=== PATIENT | female | born 1955 | race Caucasian/White ===

== ENCOUNTER 2017-03-21 11:21 | Inpatient (IN) | payer MEDICARE ==
[2017-03-21] VITALS (9 sets, daily range): BP systolic 130–206; BP diastolic 59–84; PULSE 77–99; RESP 16–24; TEMP 98.3–98.8; O2SAT 95–100
[~2017-03-21] VITALS: Ht 170.2 cm; Wt 62.0 kg
[~2017-03-21 11:21] MED LIST: 1-ME1LIQ PO; CRES10TA PO; FLUD.1 PO; HYDR-2951 PO; MAGN400 PO; METO100 PO; NEXI40CA PO; NICO14T TD; PROZ20CA11 PO; XANA2TAB2 PO
[2017-03-21] MEDS ORDERED: SODIUM CHLOR 0.9% 1000 ML INJ 1,000 ML IV ONE (11:33)
[2017-03-21 11:42] LABS: I-STAT POTASSIUM 4.8 MMOL/L (3.5-4.9)
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
--- NOTE | 2017-03-21 11:52 | RADRPT ---
EXAM DATE/TIME: 03/21/2017 11:37 [facility] COMPARISON: No previous studies available for comparison. INDICATIONS : Left sided weakness 3 days post op right hip surgery RADIATION DOSE: 56.35 CTDIvol (mGy) This report was called by Dr. Patel to Dr. Plascencia at 1150 hrs. MEDICAL HISTORY : Hypertension. SURGICAL HISTORY : None. ENCOUNTER: Initial ACUITY: 1 day PAIN SCALE: 0/10 LOCATION: cranial TECHNIQUE: Multiple contiguous axial images were obtained of the head. Using automated exposure control and adj ustment of the mA and/or kV according to patient size, radiation dose was kept as low as reasonably a chievable to obtain optimal diagnostic quality images. FINDINGS: CEREBRUM: The ventricles are normal for age. Periventricular areas of diminished attenuation in characteristic with some degree of small vessel ischemic examination. No evidence of midline shift, mass lesion, he morrhage or acute infarction. No extra-axial fluid collections are seen. POSTERIOR FOSSA: The cerebellum and brainstem are intact. The 4th ventricle is midline. The cerebellopontine angle i s unremarkable. EXTRACRANIAL: The visualized portion of the orbits is intact. SKULL: The calvaria is intact. No evidence of skull fracture. CONCLUSION: 1. Periventricular areas of diminished attenuation in characteristic of some degree of small vessel i schemic demyelination. 2. Nothing acute. Anthony Patel MD on March 21, 2017 at 11:47 Board Certified Radiologist. This report was verified electronically.
[2017-03-21] MEDS ORDERED: FLUD.1 PO (11:54)
[2017-03-21] MEDS ORDERED: CITRSOL4 PO (11:54)
[2017-03-21] MEDS ORDERED: ENOX40P SQ (11:54)
[2017-03-21] MEDS ORDERED: NICO14DI T-DERMAL (11:54)
[2017-03-21] MEDS ORDERED: METO50TA PO (11:54)
[2017-03-21] MEDS ORDERED: TYLE325T PO (11:54)
[2017-03-21] MEDS ORDERED: ENEMENE5 RECTAL (11:54)
[2017-03-21] MEDS ORDERED: SOMA350T PO (11:54)
[2017-03-21] MEDS ORDERED: FLUO60TA PO (11:54)
[2017-03-21] MEDS ORDERED: MILKSUS PO (11:54)
[2017-03-21] MEDS ORDERED: ALPR2TAB3 PO (11:54)
[2017-03-21] MEDS ORDERED: DULC10SU3 RECTAL (11:54)
[2017-03-21] MEDS ORDERED: LISI10TA3 PO (11:54)
[2017-03-21] MEDS ORDERED: NORC5TAB PO (11:54)
[2017-03-21] MEDS ORDERED: BUPR100CR PO (11:54)
[2017-03-21 11:57] LABS: AUTOMATED NEUTROPHIL # 8.8 TH/MM3 (1.8-7.7); BASOPHIL # 0.1 TH/MM3 (0-0.2); BASOPHIL % 0.5 % (0.0-2.0); EOSINOPHIL # 0.1 TH/MM3 (0-0.4); EOSINOPHIL % 0.6 % (0.0-4.0); HEMATOCRIT 32.7 % (35.0-46.0); HEMO FLAGS DIFF FINAL; LYMPH % 15.7 % (9.0-44.0); LYMPHOCYTE # 1.8 TH/MM3 (1.0-4.8); MEAN CELL VOLUME 86.3 FL (80.0-100.0); MEAN CORPUSCULAR HEMOGLOBIN 28.8 PG (27.0-34.0); MEAN CORPUSCULAR HGB CONC 33.4 % (32.0-36.0); MONO % 7.3 % (0.0-8.0); NEUT % 75.9 % (16.0-70.0); PLATELET COUNT 609 TH/MM3 (150-450); RED BLOOD COUNT 3.78 MIL/MM3 (4.00-5.30); RED CELL DISTRIBUTION WIDTH 15.4 % (11.6-17.2); WHITE BLOOD COUNT 11.5 TH/MM3 (4.0-11.0)
[2017-03-21 12:19] LABS: BACTERIA, URINE OCC /hpf; BLOOD, URINE SMALL (NEG); GLUCOSE,URINE NEG (NEG); KETONE, URINE TRACE mg/dL (NEG); MUCUS URINE FEW /lpf (OCC); NITRITE,URINE NEG (NEG); PH, URINE 8.5 (5.0-8.5); URINE COLOR YELLOW (YELLW/STRAW)
[2017-03-21 12:28] LABS: AMPHETAMINE, URINE NEG (NEG); BARBITURATES, URINE NEG (NEG); COCAINE, URINE NEG (NEG)
[2017-03-21 12:35] LABS: APTT (PATIENT) 35.2 SEC (24.3-30.1); INTERNATIONAL NORMALIZED RATIO 1.1 RATIO; PROTHROMBIN TIME - PATIENT 12.3 SEC (9.8-11.6)
[2017-03-21] MEDS ORDERED: IOHEXOL 350 MG/ML 10 ML VIAL (for RAD DIAG) IV ONE (12:41)
--- NOTE | 2017-03-21 12:42 | RADRPT ---
EXAM DATE/TIME: 03/21/2017 12:11 [facility] COMPARISON: No previous studies available for comparison. INDICATIONS : Left side weakness,headache. IV CONTRAST: 50 cc Omnipaque 350 (iohexol) IV ; Cumulative dose for multiple exams. RADIATION DOSE: 14.09 CTDIvol (mGy) ; Combined studies MEDICAL HISTORY : Cardiovascular disease. Hypertension. SURGICAL HISTORY : Appendectomy. Hysterectomy. ENCOUNTER: Initial ACUITY: 1 day PAIN SCALE: 7/10 LOCATION: CTA HEAD TECHNIQUE: Volumetric scanning was performed using a multi-row detector CT scanner. The data was post processed with a variety of visualization algorithms including full volume maximum intensity projection, multi -planar sliding thin slab reformation, curved planar reformation, and surface rendering techniques. Using automated exposure control and adjustment of the mA and/or kV according to patient size, radiat ion dose was kept as low as reasonably achievable to obtain optimal diagnostic quality images. FINDINGS: There is atherosclerotic change of the cavernous ICA segments bilaterally causing mild luminal irregu larity but no significant stenosis is seen. A1 segments are patent bilaterally. More distal intracere bral arteries are symmetric. Middle cerebral arteries are symmetric. No occlusion or aneurysm is iden tified. Posterior fossa structures demonstrate no acute finding. Vertebral arteries are co-dominant. Basilar artery is normal in size without aneurysm. Posterior sural arteries demonstrate very mild vessel irre gularity but no stenosis. CONCLUSION: Mild atherosclerotic disease within the internal carotid arteries intracranially. However, no high-gr arya stenosis, vessel occlusion, or aneurysm is identified. Zoltan Santana MD on March 21, 2017 at 12:36 Board Certified Radiologist. This report was verified electronically.
[2017-03-21 13:06] LABS: CKMB 2.2 NG/ML (0.5-3.6)
--- NOTE | 2017-03-21 13:07 | RADRPT ---
EXAM DATE/TIME: 03/21/2017 12:08 [facility] COMPARISON: CTA BRAIN W 3D RECON, March 21, 2017, 12:11. INDICATIONS : Left side weaknessheadache IV CONTRAST: 50 cc Omnipaque 350 (iohexol) IV ; Cumulative dose for multiple exams. RADIATION DOSE: 14.09 CTDIvol (mGy) ; Combined studies MEDICAL HISTORY : Cardiovascular disease. Hypertension. SURGICAL HISTORY : Appendectomy. Hysterectomy. ENCOUNTER: Initial ACUITY: 1 day PAIN SCALE: 7/10 LOCATION: neck CTA Elevated flow velocities and ICA/CCA ratios have been found to correlate with increased degrees of vessel stenosis, calculated as percentage of diameter relative to a normal segment of distal ICA/CCA. TECHNIQUE: Volumetric scanning was performed using a multirow detector CT scanner. The data was post processed with a variety of visualization algorithms including full-volume maximum intensity projection, multip lanar sliding thin-slab reformation, curved-planar reformation, and surface-rendering techniques. Us ing automated exposure control and adjustment of the mA and/or kV according to patient size, radiatio n dose was kept as low as reasonably achievable to obtain optimal diagnostic quality images. FINDINGS: AORTIC ARCH: There is a three-vessel origin of the great vessels from the aorta with moderate atherosclerotic dise ase of the arch and moderate atherosclerotic disease of the origin of the great vessels. There is sev ere focal calcification and likely at least moderate stenosis at the origin of the right subclavian a rtery. RIGHT CAROTID: There is mild to moderate calcified and noncalcified plaque throughout the common carotid artery with out significant stenosis. There is moderate calcified plaque at the carotid bulb but less than 50% st enosis is present. LEFT CAROTID: There is mild calcified and noncalcified plaque in the distal common carotid artery. There is mild ca lcified plaque in the carotid bulb and proximal aspects of the internal and external carotid arteries . However, there is less than 50% stenosis. VERTEBRALS: There is a small calcified plaque at the origin of the left vertebral artery. Vertebral arteries are codominant without stenosis. Visualized surrounding structures demonstrate no acute finding. There is patchy groundglass opacity a t the lung apices. CONCLUSION: 1. No acute vascular abnormality is identified within the neck. There is moderate right and mild left carotid bulb and proximal internal carotid artery atherosclerotic change but less than 50% stenosis present. 2. Severe calcified plaque a focally at the origin of the right subclavian artery likely resulting in moderate to severe stenosis. Zoltan Santana MD on March 21, 2017 at 12:51 Board Certified Radiologist. This report was verified electronically.
[2017-03-21] MEDS ORDERED: ASPIRIN EC 325 MG TABEC PO SCH (13:30)
[2017-03-21] MEDS: SODIUM CHLOR 0.9% 1000 ML INJ 1,000 ML IV SCH (13:42)
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
--- NOTE | 2017-03-21 16:15 | RADRPT ---
EXAM DATE/TIME: 03/21/2017 15:20 [facility] COMPARISON: No previous studies available for comparison. INDICATIONS : Clear for MRI. MEDICAL HISTORY : Hypertension. Cardiovascular disease. SURGICAL HISTORY : Appendectomy. Hysterectomy. right hip surgery ENCOUNTER: Initial ACUITY: 1 day PAIN SCORE: Non-responsive. LOCATION: Bilateral abdomen FINDINGS: 2 supine AP views of the abdomen. Right hip screw. No other radiopaque foreign bodies identified. [place] el gas pattern within normal limits. CONCLUSION: Right-sided hip screw. No other radiopaque foreign bodies identified. Matthias Dumont MD on March 21, 2017 at 16:12 Board Certified Radiologist. This report was verified electronically.
[2017-03-21] MEDS: ALPRAZolam 1 MG TAB PO SCH ×2 (17:13→21:57)
[2017-03-21] MEDS ORDERED: VALPROATE INJ 750 MG in SODIUM CHLORIDE 0.9% INJ 100 ML IV ONE (17:15)
[2017-03-21] MEDS ORDERED: GADODIAMIDE PF 287 MG/ML 5 ML VIAL (for RAD MRI) IV ONE (17:44)
[2017-03-21 17:58] LABS: MAGNESIUM 1.7 MG/DL (1.5-2.5)
[2017-03-21 18:03] LABS: INDIRECT BILIRUBIN 0.4 MG/DL (0.0-0.8); TOTAL BILIRUBIN ADULT 0.6 MG/DL (0.2-1.0)
--- NOTE | 2017-03-21 18:08 | RADRPT ---
EXAM DATE/TIME: 03/21/2017 17:21 [facility] COMPARISON: No previous studies available for comparison. INDICATIONS : CVA. CONTRAST: 14 cc Omniscan (gadodiamide) IV MEDICAL HISTORY : Hypertension. Hypercholesterolemia. Seizures. SURGICAL HISTORY : Right hip. Right shoulder. ENCOUNTER: Subsequent ACUITY: 1 day PAIN SCORE: 3/10 LOCATION: cranial TECHNIQUE: Multiplanar, multisequence MRI of the brain was performed both prior to and following the administrat ion of paramagnetic contrast. FINDINGS: CEREBRUM: The ventricles are normal for age. No evidence of midline shift, mass lesion, hemorrhage or acute in farction. No extraaxial fluid collections are seen. The pituitary gland and suprasellar cistern are normal in configuration. WHITE MATTER: Scattered high T2 foci throughout the periventricular and subcortical white of matter both cerebral h emispheres. POSTERIOR FOSSA: The cerebellum and brainstem are intact. The 4th ventricle is midline. The cerebellopontine angle is unremarkable. The cerebellar tonsils are normal in position. DIFFUSION IMAGING: No focal areas of restricted diffusion are seen. No evidence of acute infarction. EXTRACRANIAL: The visualized portions of the orbits and paranasal sinuses are unremarkable. POST-CONTRAST: No abnormal areas of parenchymal or dural enhancement. No evidence of blood-brain barrier breakdown. CONCLUSION: 1. No acute intracranial abnormality. 2. Chronic small vessel ischemic change. Desean Garcia Jr., MD on March 21, 2017 at 18:02 Board Certified Radiologist. This report was verified electronically.
[2017-03-21 18:23] LABS: FREE T4 1.75 NG/DL (0.76-1.46); HDL CHOLESTEROL 28.3 MG/DL (40.0-60.0)
[2017-03-21] MEDS: LORazepam 2 MG/ML VIAL IV PRN (20:44)
[2017-03-21] MEDS ORDERED: ACETAMINOPHEN/HYDROcodone 325 MG/5 MG TAB PO PRN (23:00)
[2017-03-21] MEDS ORDERED: NALOXONE HCL 0.4 MG/ML AMP IV PRN (23:00)
[2017-03-21] MEDS ORDERED: ACETAMINOPHEN 325 MG TAB PO PRN (23:00)
--- NOTE | 2017-03-21 23:12 | MG ---
cc: TRISHA MAN MD Lab No: Date: 03/21/17 Age: 61 Sex: F Race: DATE OF 10/10 1955. [address] Nichols READING PHYSICIAN Dr. Man. MEDICAL HISTORY Status post hip surgery, complained of leg pain, became increasingly confused, called as a stroke alert. MEDICATIONS 1. Prozac. 2. Lortab. 3. Alprazolam. 4. Fludrocortisone acetate. 5. Magnesium oxide. 6. Amlodipine besylate 7. Crestor 8. Nexium. DESCRIPTION The background activity is 8-9 Hz Alpha, bilateral and symmetrical superimposed by beta activity. The EEG recording is contaminated with excessive movement artifact. In the readable portion of the electroencephalogram, there were no electrographic seizures or epileptiform discharges noted. Photic stimulation did not elicit a driving response. There were no electrographic seizures or epileptiform discharges noted during the recording. INTERPRETATION This is an abnormal awake EEG. Excess beta activity is a nonspecific finding that may be related to medication adverse effects such as benzos and barbiturates. Absence of electrographic seizures or epileptiform discharges does not exclude a diagnosis of epilepsy. Clinical correlation is recommended. MD NOEMI Black/ /5:01 PM /11:09 PM MTDMarie
[2017-03-22] VITALS (14 sets, daily range): BP systolic 131–155; BP diastolic 57–79; PULSE 72–99; RESP 20–29; TEMP 97.7–98.9; O2SAT 95–100
[2017-03-22] MEDS: SODIUM CHLOR 0.9% 1000 ML INJ 1,000 ML IV SCH ×2 (02:36→15:56)
[2017-03-22] MEDS: ACETAMINOPHEN/HYDROcodone 325 MG/7.5 MG TAB PO PRN ×3 (05:09→22:13)
[2017-03-22] MEDS: ALPRAZolam 1 MG TAB PO SCH ×3 (05:39→22:13)
[2017-03-22 06:01] LABS: BASOPHIL # 0.1 TH/MM3 (0-0.2); BASOPHIL % 0.6 % (0.0-2.0); EOSINOPHIL # 0.2 TH/MM3 (0-0.4); EOSINOPHIL % 1.6 % (0.0-4.0); HEMATOCRIT 29.1 % (35.0-46.0); HEMO FLAGS DIFF FINAL; LYMPH % 18.9 % (9.0-44.0); LYMPHOCYTE # 2.1 TH/MM3 (1.0-4.8); MEAN CELL VOLUME 85.9 FL (80.0-100.0); MEAN CORPUSCULAR HEMOGLOBIN 28.2 PG (27.0-34.0); MEAN CORPUSCULAR HGB CONC 32.9 % (32.0-36.0); MONO % 8.2 % (0.0-8.0); NEUT % 70.7 % (16.0-70.0); PLATELET COUNT 651 TH/MM3 (150-450); RED BLOOD COUNT 3.38 MIL/MM3 (4.00-5.30); RED CELL DISTRIBUTION WIDTH 14.8 % (11.6-17.2); WHITE BLOOD COUNT 11.2 TH/MM3 (4.0-11.0)
[2017-03-22 06:52] LABS: ALKALINE PHOSPHATASE 76 U/L (45-117); ALT (GPT) 16 U/L (10-53); ANION GAP 10 MEQ/L (5-15); AST (GOT) 29 U/L (15-37); BLOOD UREA NITROGEN 5 MG/DL (7-18); CHLORIDE 93 MEQ/L (98-107); GLOMERULAR FILTRATION RATE 95 ML/MIN (>89); SODIUM (NA) 131 MEQ/L (136-145); TOTAL BILIRUBIN ADULT 0.6 MG/DL (0.2-1.0)
[2017-03-22 06:57] LABS: POTASSIUM 2.2 MEQ/L (3.5-5.1)
[2017-03-22] MEDS ORDERED: VALPROATE INJ 500 MG in SODIUM CHLORIDE 0.9% INJ 100 ML IV SCH (08:00)
--- NOTE | 2017-03-22 08:12 | EC ---
Study Study Date:03/21/2017 STUDY CONCLUSIONS SUMMARY - Left ventricle: The cavity size was normal. Wall thickness was normal. Systolic function was normal. The estimated ejection fraction was in the range of 55% to 60%. Wall motion was normal; there were no regional wall motion abnormalities. - Aortic valve: Transvalvular velocity was increased less than expected. There was ruza-vy-malcshyp stenosis by transvalvular gradient, but aortic valve area was severely reduced.May consider transesophageal echocardiography , if clinically indicated. Mild regurgitation. Valve area: 0.55cm^2(VTI). Valve area: 0.7cm^2 (Vmax). - Mitral valve: Mild to moderate regurgitation. - Left atrium: The atrium was mildly dilated. - Tricuspid valve: Mild regurgitation. - Pulmonary arteries: Systolic pressure was mildly increased. PA peak pressure: 45mm Hg (S). If LV function is below 40, please consider prescribing an ACEI or ARB or document rationale for non-use. PROCEDURE DATA STUDY STATUS: Elective. Procedure: Transthoracic echocardiography. Image quality was good. Scanning was performed from the parasternal, apical, and subcostal acoustic windows. Study completion: The patient tolerated the procedure well. Transthoracic echocardiography. M-mode, complete 2D, complete spectral Doppler, and color Doppler. Height: Height: 67in. Weight: Weight: 164.7lb. Body mass index: BMI: 25.8kg/m^2. Body surface area: BSA: 1.86m^2. Patient status: Inpatient. CARDIAC ANATOMY LEFT VENTRICLE: The cavity size was normal. Wall thickness was normal. Systolic function was normal. The estimated ejection fraction was in the range of 55% to 60%. Wall motion was normal; there were no regional wall motion abnormalities. AORTIC VALVE: Probably trileaflet; normal thickness leaflets. Doppler: Transvalvular velocity was increased less than expected. There was [id number]-dw-hdmridkx stenosis by transvalvular gradient, but aortic valve area was severely reduced. May consider transesophageal echocardiography , if clinically indicated. Mild regurgitation. Valve area: 0.55cm^2(VTI). Indexed valve area: 0.3cm^2/m^2 (VTI). Valve area: 0.7cm^2 (Vmax). Indexed valve area: 0.38cm^2/m^2 (Vmax). Mean gradient: 18mm Hg (S). Peak gradient: 40mm Hg (S). AORTA: Aortic root: The aortic root was normal in size. MITRAL VALVE: Structurally normal valve. Doppler: Transvalvular velocity was within the normal range. There was no evidence for stenosis. Mild to moderate regurgitation. Peak gradient: 2mm Hg (D). LEFT ATRIUM: The atrium was mildly dilated. RIGHT VENTRICLE: The cavity size was normal. Wall thickness was normal. PULMONIC VALVE: Doppler: Transvalvular velocity was within the normal range. There was no evidence for stenosis. No regurgitation. TRICUSPID VALVE: Structurally normal valve. Doppler: Transvalvular velocity was within the normal range. Mild regurgitation. PULMONARY ARTERY: Systolic pressure was mildly increased. RIGHT ATRIUM: The atrium was normal in size. PERICARDIUM: There was no pericardial effusion. SYSTEMIC VEINS: Inferior vena cava: The vessel was normal in size. Patient weight: 164.7lb _Ejection fraction:_ 65-75% _Fractional shortening:_ 32% up to 5Kg 5-11.5Kg 11.6-22.9Kg 23-45Kg 45-57Kg Aortic Root 7-13 <17 13-22 17-27 17-27 LA diam 6-13 <23 24-38 33-47 37-40 RVID 10-17 7-15 7-15 7-18 8-17 LVIDd 12-22 <32 24-38 33-47 37-40 LVPW 2-4 3-6 5-7 6-8 7-8 IVS 2-4 3-6 5-7 6-8 7-8 BASIC MEASUREMENTS ADULT NORMAL Left ventricle LV internal dimension, ED, chordal *42.2 mm 43-52 level, PLAX LV internal dimension, ES, chordal 33.8 mm 23-38 level, PLAX Fractional shortening, chordal level, *20 % >29 PLAX LV posterior wall thickness, ED 7.64 mm IVS/LVPW ratio, ED 1.01 <1.3 Ventricular septum Septal thickness, ED 7.73 mm Aortic valve Leaflet separation 15 mm 15-26 Aorta Root diameter, ED 25 mm Left atrium Anterior-posterior dimension 30 mm Anterior-posterior dimension index 1.61 cm/m^2 <2.2 BASIC MEASUREMENTS ADULT NORMAL Aortic valve Leaflet separation 15 mm 15-26 DOPPLER MEASUREMENTS ADULT NORMAL Main pulmonary artery Pressure, S *45 mm Hg =30 Aortic valve Peak velocity, S 317 cm/s Mean velocity, S 197 cm/s VTI, S 68.6 cm Mean gradient, S 18 mm Hg Peak gradient, S 40 mm Hg Valve area, VTI 0.55 cm^2 Valve area index, VTI 0.3 cm^2/m^2 Valve area, Vmax 0.7 cm^2 Valve area index, Vmax 0.38 cm^2/m^2 Regurgitant velocity, ED 493 cm/s Regurgitant deceleration 6800 cm/s^2 Regurgitant pressure half-time 212 ms Regurgitant gradient, ED 97 mm Hg Mitral valve Peak E-wave velocity 74.5 cm/s Peak A-wave velocity 76 cm/s Deceleration time 158 ms 150-230 Peak gradient, D 2 mm Hg Peak E/A ratio 1 Tricuspid valve Regurgitant peak velocity 312 cm/s Peak RV-RA gradient, S 39 mm Hg Maximal regurgitant velocity 312 cm/s Systemic veins Estimated CVP 10 mm Hg Right ventricle RV pressure, S *49 mm Hg <30 Pulmonic valve Peak velocity, S 94 cm/s LEGEND: Mean values are shown as u=mean value. Asterisk (*) pitt values outside specified normal range. Prepared and signed by Joshua Jones [id number]
[2017-03-22] MEDS ORDERED: POTASSIUM CHLORIDE 10 MEQ CAP PO ONE (08:45)
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
[2017-03-22] MEDS: ASPIRIN EC 81 MG TABEC PO SCH (09:07)
--- NOTE | 2017-03-22 09:26 | HHI.PR ---
Objective Vital Signs Date Time Temp Pulse Resp B/P Pulse Ox O2 Delivery O2 Flow Rate FiO2 03/22/17 09:07 95 Nasal Cannula 2.00 03/22/17 07:00 18 03/22/17 06:00 73 03/22/17 04:00 98.7 76 28 131/57 100 03/22/17 04:00 86 03/22/17 02:00 79 03/22/17 00:00 79 03/22/17 00:00 97.7 79 29 138/57 100 03/21/17 23:01 100 Nasal Cannula 2.00 03/21/17 22:00 96 03/21/17 20:00 98.8 96 24 157/62 100 03/21/17 18:25 98.4 77 22 160/72 100 03/21/17 18:05 99 20 164/77 97 03/21/17 15:39 99 20 166/77 96 03/21/17 12:31 85 16 205/84 95 03/21/17 11:57 85 18 130/59 97 Nasal Cannula 03/21/17 11:39 97 Nasal Cannula 2 03/21/17 11:37 97 Nasal Cannula 03/21/17 11:26 98.3 85 18 206/80 97 I/O 03/21/17 03/21/17 03/21/17 03/22/17 03/22/17 03/22/17 07:00 15:00 23:00 07:00 15:00 23:00 Intake Total 653 ml 606 ml Output Total 2200 ml 400 ml Balance -1547 ml 206 ml Intake Oral 240 ml 240 ml IV Total 413 ml 366 ml Output Urine Total 2200 ml 400 ml # Bowel Movements 0 Result Diagram: 03/22/17 0531 03/22/17 0531 Objective Remarks alert follows commands well ox3 Assessment and Plan Assessment and Plan mri nl eeg nl but had clinical sz last pm the med team witness focal cpsz with head turn she tells me she has hx sz never on meds stay on depakote [address] or swim etc ok oob to floor and dc tomorrow if no more sz check depakote level cbc ast alt 5 days after dc i will be going out of town fu office 2 weeks Sudhakar Nichols MD Mar 22, 2017 09:26
[2017-03-22] MEDS ORDERED: DIVALPROEX SODIUM E.R. 500 MG TAB PO SCH (09:30)
[2017-03-22 10:48] LABS: RAPID PLASMA REAGIN SCREEN NON-REACTIVE (NON-REACTVE)
--- NOTE | 2017-03-22 12:36 | EKG ---
Date Performed: 03/21/2017 Time Performed: 12:27:11 PTAGE: 61 years EKG: Sinus rhythm WITH SINUS ARRHYTHMIA PROLONGED QT INTERVAL ABNORMAL ECG Nonspecific ST-T wave changes are more prom inent since prior tracing Clinical correlation is recommended PREVIOUS TRACING : 03/21/2017 12.25 DOCTOR: Dhaval Stover Interpretating Date/Time 03/22/2017 12:35:40
[2017-03-22 13:38] LABS: ANA SCREEN NEG (NEG)
--- NOTE | 2017-03-22 14:01 | HHI.FPPN ---
Subjective Remarks Pt seen and examined this AM prior to EEG being performed. Pt alert. Oriented to person and place. Pt did not have any complaints or concerns. Afebrile. No report of further seizure activity. (Naeem Hardwick MD R1) Objective Vitals Vital Signs Date Time Temp Pulse Resp B/P Pulse Ox O2 Delivery O2 Flow Rate FiO2 03/22/17 12:00 72 03/22/17 10:00 74 03/22/17 09:07 95 Nasal Cannula 2.00 03/22/17 08:00 98.3 74 22 155/64 99 03/22/17 08:00 72 03/22/17 07:00 18 03/22/17 06:00 73 03/22/17 04:00 98.7 76 28 131/57 100 03/22/17 04:00 86 03/22/17 02:00 79 03/22/17 00:00 79 03/22/17 00:00 97.7 79 29 138/57 100 03/21/17 23:01 100 Nasal Cannula 2.00 03/21/17 22:00 96 03/21/17 20:00 98.8 96 24 157/62 100 03/21/17 18:25 98.4 77 22 160/72 100 03/21/17 18:05 99 20 164/77 97 03/21/17 15:39 99 20 166/77 96 I/O 03/21/17 03/21/17 03/21/17 03/22/17 03/22/17 03/22/17 07:00 15:00 23:00 07:00 15:00 23:00 Intake Total 653 ml 606 ml Output Total 2200 ml 400 ml Balance -1547 ml 206 ml Intake Oral 240 ml 240 ml IV Total 413 ml 366 ml Output Urine Total 2200 ml 400 ml # Bowel Movements 0 (Naeem Hardwick MD R1) Result Diagram: 03/22/17 0531 03/22/17 0531 Objective Remarks GENERAL: NAD, lying supine in bed NEURO: Alert. Oriented to person and place. Not oriented to time. Normal speech. CNsintact. Home School Coordinator strength 5/5. Lower extremity strength 5/5. Babinski downgoing. No pronator drift. SKIN: Warm and dry. No rashes or erythema. HEAD: Normocephalic. Atraumatic. EYES: PERRL. EOMI. No scleral icterus. No injection or drainage. ENT: No nasal drainage. Moist mucous membranes. Small lacerations on lips and inside cheeks, no active bleeding. NECK: Supple, trachea midline. No JVD. No carotid bruits. CARDIOVASCULAR: RRR, harsh early systolic ejection murmur along right upper sternal border, early systolic murmur left upper sternal border. Peripheral pulses 2+. RESPIRATORY: Breath sounds clear to auscultation anteriorly, without wheezes, rales, or rhonchi. No accessory muscle use. GASTROINTESTINAL: Abdomen soft, nontender, nondistended, normal BS. MUSCULOSKELETAL: No edema, cyanosis, or clubbing. (Naeem Hardwick MD R1) A/P Assessment and Plan 61 year old female with h/o severe anxiety and HTN brought to ED by paramedics for a stroke alert and found with a witnessed seizure in the ED. Discharge Planning MAGALY scheduled for Saturday03/25/2017 by cardiology. Discharge pending MAGALY and further recommendations by neurology. Likely back to [facility]. (Naeem Hardwick MD R1) Attending Attestation Patient seen, examined, and discussed with resident team. I agree with assessment and management as documented and discussed with me. Pt feeling more awake. She denies headache. Await repeat EEG. Appreciate neurology. (Carmen Costa MD) Problem List: (1) Altered mental status Status: Acute Plan: - May be caused by medication withdrawal effect leading to seizures vs lowered seizure threshold due to soma; other potential etiologies include stoke , tia, hypertensive encephalopathy, sepsis, dehydration, electrolytes abnormality - Neurology consulted - Patient had a witnessed complex partial seizure in the ED - Continue Depakote 500 mg po BID per neurology recommendations - Daily depakote levels - Check cbc, ast, alt, depakote level 5 days after discharge - Ativan 2mg IV q10m prn seizures - Initial EEG per neurology without seizure activity - Repeat EEG this AM - Pt will need to avoid activities such as driving, swimming or bathing - Seizure precautions - PT recommending PT at rehab - Continue xanax 1 mg po q8h - Daily baby aspirin - TSH 1.62 - ZOLTAN negative - RPR non-reactive - Neuro checks q4h - Head CT with no acute abnormality. Periventricular areas of diminished attenuation characteristic of some degree of small vessel ischemic demyelination - Head CTA mild atherosclerotic disease within the internal carotid arteries intracranially. No high-grade stenosis, vessel occlusion, or aneurysm - Neck CTA showing no acute vascular abnormality identified with the neck. Moderate right and mild left carotid bulb and proximal internal carotid artery atherosclerotic change but less than 50% stenosis present - Brain MRI with no acute intracranial abnormality. Chronic small vessel ischemic change. (2) Aortic valve stenosis Status: Acute Plan: TTE findings of mild to moderate stenosis, aortic valve area severely reduced, mild regurgitation Obtain MAGALY scheduled for Sunday 03/25 Cardiology consulted (3) Leukocytosis Status: Acute Plan: Possibly a stress response secondary to seizure activity Continue to monitor (4) Anxiety Status: Chronic Plan: - Continue xanax po 1 mg po q8h (5) Hypokalemia Status: Acute Plan: K+ 2.2 this AM Repleted with KCl 80 mEq Repeat BMP this afternoon with Mag level Replete as necessary and continue to monitor (6) Hyponatremia Status: Acute Plan: Na remains at 131 Continue NS at 75 cc/hr Continue to monitor (7) Anemia Status: Acute Plan: Hgb downtrended to 9.6 Continue to monitor H&H, if continues to downtrend will obtain Hemoccult and further evaluate for source of a bleed (8) Nutrition, metabolism, and development symptoms Status: Acute Plan: Fluids: NS at 75 cc/hr Electrolytes: Continue to monitor and replace as necessary Nutrition: bedside swallow assessment, advance diet if pt passes DVT ppx: Continue Lovenox (Naeem Hardwick MD R1) Problem Qualifiers (1) Aortic valve stenosis: Qualified Code: I35.0 - Aortic valve stenosis, unspecified etiology Naeem Hardwick MD R1 Mar 22, 2017 14:01 Carmen Costa MD Mar 22, 2017 17:26
[2017-03-22] MEDS: ENOXAPARIN SODIUM 40 MG/0.4 ML SYRINGE SQ SCH (17:00)
[2017-03-22] MEDS: FLUoxetine HCL 20 MG CAP PO SCH (17:00)
[2017-03-22] MEDS: METOPROLOL TARTRATE 50 MG TAB PO SCH (17:00)
[2017-03-22] MEDS: LISINOPRIL 10 MG TAB PO SCH (17:00)
[2017-03-22 19:44] LABS: BICARBONATE 26.7 MEQ/L (21.0-32.0); MAGNESIUM 1.8 MG/DL (1.5-2.5)
[2017-03-22] MEDS ORDERED: POTASSIUM CHLORIDE 10 MEQ CONTROLLED RELEASE TAB PO ONE (20:45)
[2017-03-22] MEDS: NS + KCL 20 MEQ INJ 1,000 ML IV SCH (22:12)
[2017-03-22] MEDS: DIVALPROEX SODIUM E.R. 500 MG TAB PO SCH (22:13)
[2017-03-23] VITALS (14 sets, daily range): BP systolic 116–173; BP diastolic 57–108; PULSE 70–102; RESP 15–28; TEMP 97.4–99.1; O2SAT 98–100
[2017-03-23 04:39] LABS: AUTOMATED NEUTROPHIL # 5.9 TH/MM3 (1.8-7.7); BASOPHIL # 0.1 TH/MM3 (0-0.2); BASOPHIL % 0.9 % (0.0-2.0); EOSINOPHIL # 0.4 TH/MM3 (0-0.4); EOSINOPHIL % 3.7 % (0.0-4.0); HEMATOCRIT 32.1 % (35.0-46.0); HEMO FLAGS DIFF FINAL; LYMPH % 27.1 % (9.0-44.0); LYMPHOCYTE # 2.7 TH/MM3 (1.0-4.8); MEAN CELL VOLUME 87.9 FL (80.0-100.0); MEAN CORPUSCULAR HEMOGLOBIN 29.7 PG (27.0-34.0); MEAN CORPUSCULAR HGB CONC 33.8 % (32.0-36.0); MONO % 9.6 % (0.0-8.0); NEUT % 58.7 % (16.0-70.0); PLATELET COUNT 653 TH/MM3 (150-450); RED BLOOD COUNT 3.65 MIL/MM3 (4.00-5.30); RED CELL DISTRIBUTION WIDTH 14.8 % (11.6-17.2); WHITE BLOOD COUNT 10.1 TH/MM3 (4.0-11.0)
[2017-03-23] MEDS: ALPRAZolam 1 MG TAB PO SCH ×3 (05:56→21:19)
[2017-03-23] MEDS: FLUoxetine HCL 20 MG CAP PO SCH (08:00)
[2017-03-23] MEDS: ACETAMINOPHEN/HYDROcodone 325 MG/7.5 MG TAB PO PRN ×2 (08:02→18:44)
[2017-03-23] MEDS: ASPIRIN EC 81 MG TABEC PO SCH (08:02)
[2017-03-23] MEDS: LISINOPRIL 10 MG TAB PO SCH (08:02)
[2017-03-23] MEDS: DIVALPROEX SODIUM E.R. 500 MG TAB PO SCH ×2 (08:02→20:29)
[2017-03-23] MEDS: NS + KCL 20 MEQ INJ 1,000 ML IV SCH (08:03)
[2017-03-23] MEDS: METOPROLOL TARTRATE 50 MG TAB PO SCH ×2 (08:03→20:29)
[2017-03-23 10:08] LABS: BICARBONATE 23.3 MEQ/L (21.0-32.0); POTASSIUM 3.5 MEQ/L (3.5-5.1)
--- NOTE | 2017-03-23 11:39 | PD.CARD.PN ---
Subjective Subjective Remarks Pt w/o complaints but very vague historian Objective Medications Administered Medications Medications (Trade) Dose Ordered Sig/Tom Route PRN Reason Start Time Stop Time Status Last Admin Dose Admin Aspirin (Ecotrin Ec) 81 mg DAILY PO 03/22/17 09:00 03/23/17 08:02 Lorazepam (Ativan Inj) 2 mg Q10M PRN IV SEE LABEL COMMENTS 03/21/17 16:15 03/21/17 20:44 Alprazolam (Xanax) 1 mg Q8HR PO 03/21/17 17:00 03/23/17 05:56 Acetaminophen/ Hydrocodone Bitart ([place] 7.5-325 Mg) 1 tab Q4H PRN PO PAIN SCALE 6 TO 10 03/21/17 23:00 03/23/17 08:02 Divalproex Sodium (Depakote Er) 500 mg BID PO 03/22/17 21:00 03/23/17 08:02 Fluoxetine HCl (PROzac) 60 mg DAILY PO 03/22/17 17:00 03/23/17 08:00 Lisinopril (Prinivil) 10 mg DAILY PO 03/22/17 17:00 03/23/17 08:02 Metoprolol Tartrate 50 mg 50 mg DAILY PO 03/22/17 17:00 03/23/17 08:03 Potassium Chloride/Sodium Chloride (NS + KCl 20 Meq Inj) 1,000 ml @ 75 mls/hr [id number] IV 03/22/17 20:45 03/23/17 08:03 Vital Signs / I&O Vital Signs Date Time Temp Pulse Resp B/P Pulse Ox O2 Delivery O2 Flow Rate FiO2 03/23/17 08:40 100 Nasal Cannula 2.00 03/23/17 08:00 90 03/23/17 06:00 92 03/23/17 04:00 71 03/23/17 04:00 98.1 71 28 154/108 99 03/23/17 02:00 78 03/23/17 00:00 98.1 75 16 145/63 100 03/23/17 00:00 99 03/22/17 22:00 91 03/22/17 20:29 97 Nasal Cannula 2.00 03/22/17 20:00 99 03/22/17 20:00 98.9 99 27 146/79 98 03/22/17 18:00 76 03/22/17 16:00 98.3 87 20 132/63 99 03/22/17 16:00 72 03/22/17 14:09 20 03/22/17 14:00 76 03/22/17 12:00 72 03/22/17 12:00 98.6 80 20 139/64 98 I/O 03/22/17 03/22/17 03/22/17 03/23/17 03/23/17 03/23/17 07:00 15:00 23:00 07:00 15:00 23:00 Intake Total 606 ml 1335 ml 642 ml Output Total 400 ml 1900 ml 300 ml Balance 206 ml -565 ml 342 ml Intake Oral 240 ml 960 ml 240 ml IV Total 366 ml 375 ml 402 ml Output Urine Total 400 ml 1900 ml 300 ml # Bowel Movements 2 Physical Exam GENERAL: This is a well-nourished, well-developed patient, in no apparent distress. CARDIOVASCULAR: 3/6 SHANIQUA, RRR. RESPIRATORY: Clear to auscultation. Breath sounds equal bilaterally. No wheezes , rales, or rhonchi. GASTROINTESTINAL: Abdomen soft, non-tender, nondistended. Normal active bowel sounds MUSCULOSKELETAL: Extremities without clubbing, cyanosis, or edema. NEURO: Alert & Oriented x4 to person, place, time, situation. Moves all ext x4 Laboratory Laboratory Tests Test 03/22/17 03/23/17 03/23/17 18:52 03:29 09:25 Sodium Level 133 MEQ/L 133 MEQ/L Potassium Level 3.0 MEQ/L 3.5 MEQ/L Chloride Level 96 MEQ/L 98 MEQ/L Carbon Dioxide Level 26.7 MEQ/L 23.3 MEQ/L Anion Gap 10 MEQ/L 12 MEQ/L Blood Urea Nitrogen 5 MG/DL 7 MG/DL Creatinine 0.58 MG/DL 0.50 MG/DL Estimat Glomerular Filtration 106 ML/MIN 126 ML/MIN Rate Random Glucose 81 MG/DL 100 MG/DL Calcium Level 8.8 MG/DL 9.1 MG/DL Magnesium Level 1.8 MG/DL White Blood Count 10.1 TH/MM3 Red Blood Count 3.65 MIL/MM3 Hemoglobin 10.8 GM/DL Hematocrit 32.1 % Mean Corpuscular Volume 87.9 FL Mean Corpuscular Hemoglobin 29.7 PG Mean Corpuscular Hemoglobin 33.8 % Concent Red Cell Distribution Width 14.8 % Platelet Count 653 TH/MM3 Mean Platelet Volume 7.9 FL Neutrophils (%) (Auto) 58.7 % Lymphocytes (%) (Auto) 27.1 % Monocytes (%) (Auto) 9.6 % Eosinophils (%) (Auto) 3.7 % Basophils (%) (Auto) 0.9 % Neutrophils # (Auto) 5.9 TH/MM3 Lymphocytes # (Auto) 2.7 TH/MM3 Monocytes # (Auto) 1.0 TH/MM3 Eosinophils # (Auto) 0.4 TH/MM3 Basophils # (Auto) 0.1 TH/MM3 CBC Comment DIFF FINAL Differential Comment Valproic Acid (Depakene) Level 47 MCG/ML Imaging Last Impressions Brain MRI 03/21/17 1316 Signed Impressions: Service Date/Time: March 17:21 - CONCLUSION: 1. No acute intracranial abnormality. 2. Chronic small vessel ischemic change. Desean Garcia Jr., MD Neck CTA 03/21/17 1146 Signed Impressions: Service Date/Time: March 12:08 - CONCLUSION: 1. No acute vascular abnormality is identified within the neck. There is moderate right and mild left carotid bulb and proximal internal carotid artery atherosclerotic change but less than 50%% stenosis present. 2. Severe calcified plaque a focally at the origin of the right subclavian artery likely resulting in moderate to severe stenosis. Zoltan Santana MD Head CTA 03/21/17 1146 Signed Impressions: Service Date/Time: March 12:11 - CONCLUSION: Mild atherosclerotic disease within the internal carotid arteries intracranially. However, no high-grade stenosis, vessel occlusion, or aneurysm is identified. Zoltan Santana MD Head CT 03/21/17 0000 Signed Impressions: Service Date/Time: March 11:37 - CONCLUSION: 1. Periventricular areas of diminished attenuation in characteristic of some degree of small vessel ischemic demyelination. 2. Nothing acute. Anthony Patel MD Abdomen X-Ray 03/21/17 0000 Signed Impressions: Service Date/Time: March 15:20 - CONCLUSION: Right-sided hip screw. No other radiopaque foreign bodies identified. Matthias Dumont MD Assessment and Plan Problem List: (1) Aortic valve stenosis Assessment and Plan: Possibly severe, Dr. Jones for MAGALY saturday. (2) Altered mental status Assessment and Plan: Though alert she has a very hard time answering questions. 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 Problem Qualifiers (1) Aortic valve stenosis: Qualified Code: I35.0 - Aortic valve stenosis, unspecified etiology Jose Luis Pineda MD Mar 23, 2017 11:39
--- NOTE | 2017-03-23 12:48 | HHI.FPPN ---
Subjective Remarks Patient is doing well this morning. She has no complaints. She is awake alert and oriented 2. She is able to tell me the months of the year going forward. Has trouble with the months of the year going backward. Nursing reports the patient was pulling out lines and had a bowel movement on herself overnight. Patient denies fever, chills, nausea, vomiting. (Robby Cuellar MD R2) Objective Vitals Vital Signs Date Time Temp Pulse Resp B/P Pulse Ox O2 Delivery O2 Flow Rate FiO2 03/23/17 08:40 100 Nasal Cannula 2.00 03/23/17 08:00 90 03/23/17 06:00 92 03/23/17 04:00 71 03/23/17 04:00 98.1 71 28 154/108 99 03/23/17 02:00 78 03/23/17 00:00 98.1 75 16 145/63 100 03/23/17 00:00 99 03/22/17 22:00 91 03/22/17 20:29 97 Nasal Cannula 2.00 03/22/17 20:00 99 03/22/17 20:00 98.9 99 27 146/79 98 03/22/17 18:00 76 03/22/17 16:00 98.3 87 20 132/63 99 03/22/17 16:00 72 03/22/17 14:09 20 03/22/17 14:00 76 I/O 03/22/17 03/22/17 03/22/17 03/23/17 03/23/17 03/23/17 07:00 15:00 23:00 07:00 15:00 23:00 Intake Total 606 ml 1335 ml 642 ml Output Total 400 ml 1900 ml 300 ml Balance 206 ml -565 ml 342 ml Intake Oral 240 ml 960 ml 240 ml IV Total 366 ml 375 ml 402 ml Output Urine Total 400 ml 1900 ml 300 ml # Bowel Movements 2 (Robby Cuellar MD R2) Result Diagram: 03/23/17 0329 03/23/17 0925 Objective Remarks GENERAL: NAD, lying supine in bed NEURO: Alert. Oriented to person and place. Not oriented to time. Normal speech. CNsintact. Skewer Up strength 5/5. Lower extremity strength 5/5. Babinski downgoing. No pronator drift. SKIN: Warm and dry. No rashes or erythema. HEAD: Normocephalic. Atraumatic. EYES: PERRL. EOMI. No scleral icterus. No injection or drainage. ENT: No nasal drainage. Moist mucous membranes. Small lacerations on lips and inside cheeks, no active bleeding. NECK: Supple, trachea midline. No JVD. No carotid bruits. CARDIOVASCULAR: RRR, harsh early systolic ejection murmur along right upper sternal border, early systolic murmur left upper sternal border. Peripheral pulses 2+. RESPIRATORY: Breath sounds clear to auscultation anteriorly, without wheezes, rales, or rhonchi. No accessory muscle use. GASTROINTESTINAL: Abdomen soft, nontender, nondistended, normal BS. MUSCULOSKELETAL: No edema, cyanosis, or clubbing. (Robby Cuellar MD R2) A/P Assessment and Plan 61 year old female with h/o severe anxiety and HTN brought to ED by paramedics for a stroke alert and found with a witnessed seizure in the ED. Neurology the patient on Depakote 500 twice a day. Clear for discharge from neurology standpoint. Patient found to have severe aortic stenosis. Plan for MAGALY on Saturday. Discharge Planning MAGALY scheduled for Saturday03/25/2017 by cardiology. Discharge pending MAGALY and continued clinical improvement back to baseline. Likely back to [facility]. (Robby Cuellar MD R2) Attending Attestation Patient seen and examined, discussed with Dr. Cuellar. I agree with assessment and management as documented and discussed with me. Per nursing, patient has episodes of confusion. Unclear etiology but seems to be slowly improving. Work up negative, except for recent seizures. (Carmen Costa MD) Problem List: (1) Altered mental status Status: Acute Plan: - May be caused by medication withdrawal effect leading to seizures vs lowered seizure threshold due to soma; other potential etiologies include stoke , tia, hypertensive encephalopathy, sepsis, dehydration, electrolytes abnormality - Neurology consulted - Continue Depakote 500 mg po BID per neurology recommendations - Daily depakote levels - Check cbc, ast, alt, depakote level 5 days after discharge - Ativan 2mg IV q10m prn seizures - Initial EEG per neurology without seizure activity - Pt will need to avoid activities such as driving, swimming or bathing - Seizure precautions - PT recommending PT at rehab - Continue xanax 1 mg po q8h - Daily baby aspirin - TSH 1.62 - ZOLTAN negative - RPR non-reactive - Neuro checks q4h - Head CT with no acute abnormality. Periventricular areas of diminished attenuation characteristic of some degree of small vessel ischemic demyelination - Head CTA mild atherosclerotic disease within the internal carotid arteries intracranially. No high-grade stenosis, vessel occlusion, or aneurysm - Neck CTA showing no acute vascular abnormality identified with the neck. Moderate right and mild left carotid bulb and proximal internal carotid artery atherosclerotic change but less than 50% stenosis present - Brain MRI with no acute intracranial abnormality. Chronic small vessel ischemic change. (2) Aortic valve stenosis Status: Acute Plan: TTE findings of mild to moderate stenosis, aortic valve area severely reduced, mild regurgitation Obtain MAGALY scheduled for Sunday 03/25 Cardiology consulted (3) Leukocytosis Status: Resolved Plan: Possibly a stress response secondary to seizure activity Continue to monitor (4) Anxiety Status: Chronic Plan: - Continue xanax po 1 mg po q8h (5) Hypokalemia Status: Acute Plan: Currently resolved. Getting normal saline 75 mL with potassium Continue to monitor daily (6) Hyponatremia Status: Acute Plan: Improving Continue NS at 75 cc/hr Continue to monitor (7) Anemia Status: Acute Plan: Stable Continue to monitor If continues to down trend, consider Hemoccult (8) Nutrition, metabolism, and development symptoms Status: Acute Plan: Fluids: NS at 75 cc/hr with potassium Electrolytes: Continue to monitor and replace as necessary Nutrition: Regular diet DVT ppx: Continue Lovenox (Robby Cuellar MD R2) Problem Qualifiers (1) Aortic valve stenosis: Qualified Code: I35.0 - Aortic valve stenosis, unspecified etiology Robby Cuellar MD R2 Mar 23, 2017 12:48 Carmen Costa MD Mar 23, 2017 21:43
[2017-03-23] MEDS: ENOXAPARIN SODIUM 40 MG/0.4 ML SYRINGE SQ SCH (18:44)
[2017-03-23] MEDS: LORazepam 2 MG/ML VIAL IV PRN (20:28)
[2017-03-24] VITALS (14 sets, daily range): BP systolic 121–172; BP diastolic 59–84; PULSE 65–91; RESP 17–29; TEMP 97.8–98.6; O2SAT 97–100
[2017-03-24] MEDS: NS + KCL 20 MEQ INJ 1,000 ML IV SCH ×2 (00:58→14:21)
[2017-03-24] MEDS: ALPRAZolam 1 MG TAB PO SCH ×3 (06:35→21:00)
--- NOTE | 2017-03-24 07:10 | HHI.FPPN ---
Subjective Remarks RN reported overnight patient seemed to be anxious and there was concern as if she was going to have a seizure. She received Ativan 2mg IV x1 yesterday night. No report of actual seizure activity. RN reported the night before last the patient was OOB on her own and had a BM over herself and over the floor. Pt was sleeping comfortably in bed this AM. Alert when woken up. She is oriented x3. Denies anxiety currently, denies fevers, CP, SOB. Endorses mild amt of pain around her right hip. Denies confusion or any focal weakness. ( Naeem Hardwick MD R1) Objective Vitals Vital Signs Date Time Temp Pulse Resp B/P Pulse Ox O2 Delivery O2 Flow Rate FiO2 03/24/17 06:00 70 03/24/17 04:00 98.5 65 22 166/74 98 03/24/17 04:00 65 03/24/17 02:00 66 03/24/17 00:00 65 03/24/17 00:00 98.1 65 17 149/67 97 03/23/17 22:00 70 03/23/17 20:06 18 03/23/17 20:00 91 03/23/17 20:00 97.4 91 21 116/57 98 03/23/17 19:04 100 Nasal Cannula 2.00 03/23/17 18:00 83 03/23/17 16:00 71 03/23/17 16:00 98.4 71 25 151/76 100 03/23/17 14:00 80 03/23/17 12:00 80 03/23/17 12:00 98.7 73 15 173/71 100 03/23/17 10:00 102 03/23/17 08:40 100 Nasal Cannula 2.00 03/23/17 08:00 99.1 102 22 164/77 100 03/23/17 08:00 90 I/O 03/23/17 03/23/17 03/23/17 03/24/17 03/24/17 03/24/17 07:00 15:00 23:00 07:00 15:00 23:00 Intake Total 642 ml 878 ml 532 ml 458 ml Output Total 300 ml 850 ml 350 ml 850 ml Balance 342 ml 28 ml 182 ml -392 ml Intake Oral 240 ml 400 ml 120 ml 60 ml IV Total 402 ml 478 ml 412 ml 398 ml Output Urine Total 300 ml 850 ml 350 ml 850 ml # Bowel Movements 0 0 0 (Naeem Hardwick MD R1) Result Diagram: 03/23/17 0329 03/23/17 0925 Objective Remarks GENERAL: NAD, lying supine in bed NEURO: AOx3. Normal speech. expense clerk grossly intact. User Support Analyst Supervisor strength 5/5. Lower extremity strength 5/5. Babinski downgoing. No pronator drift. SKIN: Warm and dry. No rashes or erythema. HEAD: Normocephalic. Atraumatic. EYES: EOMI. No scleral icterus. No injection or drainage. ENT: No nasal drainage. Moist mucous membranes. Small lacerations on lips and inside cheeks, no active bleeding. NECK: Supple, trachea midline. No JVD. CARDIOVASCULAR: RRR, harsh early systolic ejection murmur along right upper sternal border, early systolic murmur left upper sternal border. Peripheral pulses 2+. RESPIRATORY: Breath sounds clear to auscultation anteriorly, without wheezes, rales, or rhonchi. No accessory muscle use. GASTROINTESTINAL: Abdomen soft, nontender, nondistended, normal BS. MUSCULOSKELETAL: No edema, cyanosis, or clubbing. (Naeem Hardwick MD R1) A/P Assessment and Plan 61 year old female with h/o severe anxiety and HTN brought to ED by paramedics for a stroke alert and found with a witnessed seizure in the ED. Neurology started the patient on Depakote 500 twice a day. Clear for discharge from neurology standpoint. Patient found to have severe aortic stenosis. Plan for MAGALY on Saturday. Discharge Planning MAGALY scheduled for Saturday03/25/2017 by cardiology. Discharge pending MAGALY and continued clinical improvement back to baseline. Likely back to [facility]. (Naeem Hardwick MD R1) Attending Attestation Patient seen and examined, discussed with Dr. Hardwick. I agree with assessment and management as documented and discussed with me. No new concerns from nursing. Mental status is improving. Await MAGALY tomorrow for evaluation of aortic valve. (Carmen Costa MD) Problem List: (1) Altered mental status Status: Acute Plan: - May be caused by medication withdrawal effect leading to seizures vs lowered seizure threshold due to soma; other potential etiologies include stoke , tia, hypertensive encephalopathy, sepsis, dehydration, electrolytes abnormality - Neurology consulted - Continue Depakote 500 mg po BID per neurology recommendations - Daily depakote levels - Check cbc, ast, alt, depakote level 5 days after discharge - Ativan 2mg IV q10m prn seizures - Initial EEG per neurology without seizure activity - Pt will need to avoid activities such as driving, swimming or bathing - Seizure precautions - PT recommending PT at rehab - Continue xanax 1 mg po q8h - Daily baby aspirin - TSH 1.62 - ZOLTAN negative - RPR non-reactive - Neuro checks q4h - Head CT with no acute abnormality. Periventricular areas of diminished attenuation characteristic of some degree of small vessel ischemic demyelination - Head CTA mild atherosclerotic disease within the internal carotid arteries intracranially. No high-grade stenosis, vessel occlusion, or aneurysm - Neck CTA showing no acute vascular abnormality identified with the neck. Moderate right and mild left carotid bulb and proximal internal carotid artery atherosclerotic change but less than 50% stenosis present - Brain MRI with no acute intracranial abnormality. Chronic small vessel ischemic change. (2) Aortic valve stenosis Status: Acute Plan: TTE findings of mild to moderate stenosis, aortic valve area severely reduced, mild regurgitation Obtain MAGALY scheduled for Sunday 03/25 Cardiology consulted (3) Leukocytosis Status: Resolved Plan: Possibly a stress response secondary to seizure activity Continue to monitor (4) Anxiety Status: Chronic Plan: - Continue xanax po 1 mg po q8h (5) Hypokalemia Status: Acute Plan: Currently resolved. Getting normal saline 75 mL with potassium Continue to monitor daily (6) Hyponatremia Status: Acute Plan: Improving Continue NS at 75 cc/hr Continue to monitor (7) Anemia Status: Acute Plan: Stable Continue to monitor If downtrending, consider Hemoccult (8) Hypertension Status: Chronic Plan: Continue lisinopril 10 mg po daily Continue metoprolol 50 mg po bid Monitor vitals q4h (9) Depression Status: Chronic Plan: Continue home prozac 60 mg po daily Hold home bupropion due to lowered seizure threshold (10) Nutrition, metabolism, and development symptoms Status: Acute Plan: Fluids: NS at 75 cc/hr with potassium Electrolytes: Continue to monitor and replace as necessary Nutrition: Regular diet DVT ppx: Continue Lovenox 40mg subq q24h (Naeem Hardwick MD R1) Problem Qualifiers (1) Aortic valve stenosis: Qualified Code: I35.0 - Aortic valve stenosis, unspecified etiology Naeem Hardwick MD R1 Mar 24, 2017 07:10 Carmen Costa MD Mar 24, 2017 11:59
--- NOTE | 2017-03-24 08:12 | PD.CARD.PN ---
Subjective Subjective Remarks Pt w/o complaints Objective Medications Administered Medications Medications (Trade) Dose Ordered Sig/Tom Route PRN Reason Start Time Stop Time Status Last Admin Dose Admin Aspirin (Ecotrin Ec) 81 mg DAILY PO 03/22/17 09:00 03/23/17 08:02 Lorazepam (Ativan Inj) 2 mg Q10M PRN IV SEE LABEL COMMENTS 03/21/17 16:15 03/23/17 20:28 Alprazolam (Xanax) 1 mg Q8HR PO 03/21/17 17:00 03/24/17 06:35 Acetaminophen/ Hydrocodone Bitart (Steward 7.5-325 Mg) 1 tab Q4H PRN PO PAIN SCALE 6 TO 10 03/21/17 23:00 03/23/17 18:44 Divalproex Sodium (Depakote Er) 500 mg BID PO 03/22/17 21:00 03/23/17 20:29 Enoxaparin Sodium (Lovenox Inj) 40 mg Q24H SQ 03/22/17 17:00 03/23/17 18:44 Fluoxetine HCl (PROzac) 60 mg DAILY PO 03/22/17 17:00 03/23/17 08:00 Lisinopril 10 mg 10 mg DAILY PO 03/22/17 17:00 03/23/17 08:02 Potassium Chloride/Sodium Chloride (NS + KCl 20 Meq Inj) 1,000 ml @ 75 mls/hr [id number] IV 03/22/17 20:45 03/24/17 00:58 Metoprolol Tartrate (Lopressor) 50 mg BID PO 03/23/17 21:00 03/23/17 20:29 Vital Signs / I&O Vital Signs Date Time Temp Pulse Resp B/P Pulse Ox O2 Delivery O2 Flow Rate FiO2 03/24/17 06:00 70 03/24/17 04:00 98.5 65 22 166/74 98 03/24/17 04:00 65 03/24/17 02:00 66 03/24/17 00:00 65 03/24/17 00:00 98.1 65 17 149/67 97 03/23/17 22:00 70 03/23/17 20:06 18 03/23/17 20:00 91 03/23/17 20:00 97.4 91 21 116/57 98 03/23/17 19:04 100 Nasal Cannula 2.00 03/23/17 18:00 83 03/23/17 16:00 71 03/23/17 16:00 98.4 71 25 151/76 100 03/23/17 14:00 80 03/23/17 12:00 80 03/23/17 12:00 98.7 73 15 173/71 100 03/23/17 10:00 102 03/23/17 08:40 100 Nasal Cannula 2.00 I/O 03/23/17 03/23/17 03/23/17 03/24/17 03/24/17 03/24/17 07:00 15:00 23:00 07:00 15:00 23:00 Intake Total 642 ml 878 ml 532 ml 458 ml Output Total 300 ml 850 ml 350 ml 850 ml Balance 342 ml 28 ml 182 ml -392 ml Intake Oral 240 ml 400 ml 120 ml 60 ml IV Total 402 ml 478 ml 412 ml 398 ml Output Urine Total 300 ml 850 ml 350 ml 850 ml # Bowel Movements 0 0 0 Physical Exam GENERAL: This is a well-nourished, well-developed patient, in no apparent distress. CARDIOVASCULAR: 3/6 SHANIQUA, RRR. RESPIRATORY: Clear to auscultation. Breath sounds equal bilaterally. No wheezes , rales, or rhonchi. GASTROINTESTINAL: Abdomen soft, non-tender, nondistended. Normal active bowel sounds MUSCULOSKELETAL: Extremities without clubbing, cyanosis, or edema. NEURO: Alert & Oriented x4 to person, place, time, situation. Moves all ext x4 Laboratory Laboratory Tests Test 03/23/17 09:25 Sodium Level 133 MEQ/L Potassium Level 3.5 MEQ/L Chloride Level 98 MEQ/L Carbon Dioxide Level 23.3 MEQ/L Anion Gap 12 MEQ/L Blood Urea Nitrogen 7 MG/DL Creatinine 0.50 MG/DL Estimat Glomerular Filtration 126 ML/MIN Rate Random Glucose 100 MG/DL Calcium Level 9.1 MG/DL Valproic Acid (Depakene) Level 47 MCG/ML Imaging Last Impressions Brain MRI 03/21/17 1316 Signed Impressions: Service Date/Time: March 17:21 - CONCLUSION: 1. No acute intracranial abnormality. 2. Chronic small vessel ischemic change. Desean Garcia Jr., MD Neck CTA 6/1/17 1146 Signed Impressions: Service Date/Time: March 12:08 - CONCLUSION: 1. No acute vascular abnormality is identified within the neck. There is moderate right and mild left carotid bulb and proximal internal carotid artery atherosclerotic change but less than 50%% stenosis present. 2. Severe calcified plaque a focally at the origin of the right subclavian artery likely resulting in moderate to severe stenosis. Zoltan Santana MD Head CTA 03/21/17 1146 Signed Impressions: Service Date/Time: March 12:11 - CONCLUSION: Mild atherosclerotic disease within the internal carotid arteries intracranially. However, no high-grade stenosis, vessel occlusion, or aneurysm is identified. Zoltan Santana MD Head CT 03/21/17 0000 Signed Impressions: Service Date/Time: March 11:37 - CONCLUSION: 1. Periventricular areas of diminished attenuation in characteristic of some degree of small vessel ischemic demyelination. 2. Nothing acute. Anthony Patel MD Abdomen X-Ray 03/21/17 0000 Signed Impressions: Service Date/Time: March 15:20 - CONCLUSION: Right-sided hip screw. No other radiopaque foreign bodies identified. Matthias Dumont MD Assessment and Plan Problem List: (1) Aortic valve stenosis Assessment and Plan: Possibly severe, Dr. Jones for MAGALY saturday. NPO p midnight (2) Altered mental status Assessment and Plan: Though alert she has a very hard time answering questions. 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 Problem Qualifiers (1) Aortic valve stenosis: Qualified Code: I35.0 - Aortic valve stenosis, unspecified etiology Jose Luis Pineda MD Mar 24, 2017 08:12
[2017-03-24] MEDS: DIVALPROEX SODIUM E.R. 500 MG TAB PO SCH ×2 (09:34→20:57)
[2017-03-24] MEDS: FLUoxetine HCL 20 MG CAP PO SCH (09:34)
[2017-03-24] MEDS: ASPIRIN EC 81 MG TABEC PO SCH (09:34)
[2017-03-24] MEDS: LISINOPRIL 10 MG TAB PO SCH (09:35)
[2017-03-24] MEDS: METOPROLOL TARTRATE 50 MG TAB PO SCH ×2 (09:35→20:57)
[2017-03-24] MEDS: ACETAMINOPHEN/HYDROcodone 325 MG/7.5 MG TAB PO PRN ×2 (09:36→17:18)
[2017-03-24 11:13] LABS: AUTOMATED NEUTROPHIL # 5.6 TH/MM3 (1.8-7.7); BASOPHIL # 0.1 TH/MM3 (0-0.2); BASOPHIL % 1.2 % (0.0-2.0); EOSINOPHIL # 0.2 TH/MM3 (0-0.4); EOSINOPHIL % 2.1 % (0.0-4.0); HEMATOCRIT 34.4 % (35.0-46.0); HEMO FLAGS DIFF FINAL; LYMPH % 20.5 % (9.0-44.0); LYMPHOCYTE # 1.7 TH/MM3 (1.0-4.8); MEAN CELL VOLUME 87.7 FL (80.0-100.0); MEAN CORPUSCULAR HEMOGLOBIN 28.9 PG (27.0-34.0); MEAN CORPUSCULAR HGB CONC 32.9 % (32.0-36.0); MONO % 7.6 % (0.0-8.0); NEUT % 68.6 % (16.0-70.0); PLATELET COUNT 713 TH/MM3 (150-450); RED BLOOD COUNT 3.92 MIL/MM3 (4.00-5.30); RED CELL DISTRIBUTION WIDTH 15.1 % (11.6-17.2); WHITE BLOOD COUNT 8.1 TH/MM3 (4.0-11.0)
[2017-03-24 11:35] LABS: ANION GAP 12 MEQ/L (5-15); AST (GOT) 20 U/L (15-37); BICARBONATE 26.5 MEQ/L (21.0-32.0); BLOOD UREA NITROGEN 7 MG/DL (7-18); CHLORIDE 94 MEQ/L (98-107); GLOMERULAR FILTRATION RATE 74 ML/MIN (>89); POTASSIUM 3.3 MEQ/L (3.5-5.1); SODIUM (NA) 132 MEQ/L (136-145)
[2017-03-24 11:36] LABS: ALT (GPT) 15 U/L (10-53)
[2017-03-24 11:38] LABS: ALKALINE PHOSPHATASE 83 U/L (45-117); TOTAL BILIRUBIN ADULT 0.5 MG/DL (0.2-1.0)
[2017-03-24] MEDS ORDERED: POTASSIUM CHLORIDE 10 MEQ CONTROLLED RELEASE TAB PO ONE (12:45)
--- NOTE | 2017-03-24 12:47 | HHI.FPPN ---
Addendum to progress note ADDENDUM Reason for addendum: Additonal documentation Additional information Off-service Note 61 year old female with h/o severe anxiety, HTN, and R hip fracture s/p ORIF the week before admission she was well functioning prior to her hip fracture able to perform all IADLs she was brought by paramedics to the ED from [facility] for a stroke alert. Stroke w/u was negative. She had a witnessed seizure in the ED. from report by the patient's daughter, the patient was having severe anxiety tonight before admission, and was not given her by mouth Xanax until 1 AM. It was thought the patient may have had seizure activity due to a medication withdrawal effect. She was started on Depacon IV now transitioned to Depakote 500 mg po bid. She has not had a seizure per nursing since her seizure in the ED on 03/21. Her initial EEG had absence of electrographic seizures or epileptiform discharges however this does not exclude a diagnosis of epilepsy. EEG did show excess beta activity which is a nonspecific finding however may be related to medication adverse effects such as benzodiazepines. She was found to have mild to moderate aortic stenosis on transthoracic echocardiography. Patient is thus scheduled to undergo a MAGALY on Sunday 03/25 by cardiology. Pending results of MAGALY, patient is otherwise stable for discharge back to [facility]. Patient should be instructed on seizure precautions prior to discharge. Patient will need Depakote level, CBC, AST, ALP to be checked 5 days after discharge. She will need follow-up with neurology, Dr. Nichols, in 2 weeks. Naeem Hardwick MD R1 Mar 24, 2017 12:47
[2017-03-24] MEDS: ENOXAPARIN SODIUM 40 MG/0.4 ML SYRINGE SQ SCH (17:19)
[2017-03-25] VITALS (11 sets, daily range): BP systolic 129–187; BP diastolic 60–78; PULSE 61–76; RESP 11–26; TEMP 97.5–98.7; O2SAT 80–100
[2017-03-25] MEDS: NS + KCL 20 MEQ INJ 1,000 ML IV SCH ×2 (02:05→15:25)
[2017-03-25] MEDS: ACETAMINOPHEN/HYDROcodone 325 MG/7.5 MG TAB PO PRN ×2 (03:24→08:36)
[2017-03-25] MEDS: ALPRAZolam 1 MG TAB PO SCH ×2 (06:37→14:38)
--- NOTE | 2017-03-25 08:21 | PD.CARD.PN ---
Subjective Subjective Remarks Denies CV complaints Objective Vital Signs / I&O Vital Signs Date Time Temp Pulse Resp B/P Pulse Ox O2 Delivery O2 Flow Rate FiO2 03/25/17 06:00 64 03/25/17 04:24 18 03/25/17 04:00 71 03/25/17 04:00 98.4 71 20 158/72 99 03/25/17 02:00 64 03/25/17 00:00 98.2 61 19 138/60 98 03/25/17 00:00 61 03/24/17 22:00 65 03/24/17 21:58 18 03/24/17 21:02 100 21 03/24/17 20:00 73 03/24/17 20:00 98.6 73 23 121/59 97 03/24/17 18:00 90 03/24/17 16:00 91 03/24/17 16:00 97.8 91 25 132/84 97 03/24/17 14:00 67 03/24/17 12:00 70 03/24/17 12:00 97.9 70 28 157/77 100 03/24/17 10:38 100 21 03/24/17 10:00 80 I/O 03/24/17 03/24/17 03/24/17 03/25/17 03/25/17 03/25/17 06:59 14:59 22:59 06:59 14:59 22:59 Intake Total 458 ml 978 ml 440 ml 170 ml Output Total 850 ml 800 ml 250 ml 450 ml Balance -392 ml 178 ml 190 ml -280 ml Intake Oral 60 ml 480 ml 120 ml 0 ml IV Total 398 ml 498 ml 320 ml 170 ml Output Urine Total 850 ml 800 ml 250 ml 450 ml # Bowel Movements 0 1 0 0 Physical Exam GENERAL: Well-nourished, well-developed patient in no apparent distress. NECK: No JVD. No carotid bruit. CARDIOVASCULAR: Regular rate and rhythm. S1/S2 no rub, or gallop.II/ SHANIQUA LSB RESPIRATORY: No accessory muscle use. Clear to auscultation. Breath sounds equal bilaterally. GASTROINTESTINAL: Abdomen soft, non-tender, nondistended. MUSCULOSKELETAL: Extremities without clubbing, cyanosis, or edema. Laboratory Laboratory Tests Test 03/24/17 10:34 White Blood Count 8.1 TH/MM3 Red Blood Count 3.92 MIL/MM3 Hemoglobin 11.3 GM/DL Hematocrit 34.4 % Mean Corpuscular Volume 87.7 FL Mean Corpuscular Hemoglobin 28.9 PG Mean Corpuscular Hemoglobin 32.9 % Concent Red Cell Distribution Width 15.1 % Platelet Count 713 TH/MM3 Mean Platelet Volume 7.6 FL Neutrophils (%) (Auto) 68.6 % Lymphocytes (%) (Auto) 20.5 % Monocytes (%) (Auto) 7.6 % Eosinophils (%) (Auto) 2.1 % Basophils (%) (Auto) 1.2 % Neutrophils # (Auto) 5.6 TH/MM3 Lymphocytes # (Auto) 1.7 TH/MM3 Monocytes # (Auto) 0.6 TH/MM3 Eosinophils # (Auto) 0.2 TH/MM3 Basophils # (Auto) 0.1 TH/MM3 CBC Comment DIFF FINAL Differential Comment Sodium Level 132 MEQ/L Potassium Level 3.3 MEQ/L Chloride Level 94 MEQ/L Carbon Dioxide Level 26.5 MEQ/L Anion Gap 12 MEQ/L Blood Urea Nitrogen 7 MG/DL Creatinine 0.79 MG/DL Estimat Glomerular Filtration 74 ML/MIN Rate Random Glucose 92 MG/DL Calcium Level 9.2 MG/DL Total Bilirubin 0.5 MG/DL Aspartate Amino Transf 20 U/L (AST/SGOT) Alanine Aminotransferase 15 U/L (ALT/SGPT) Alkaline Phosphatase 83 U/L Total Protein 7.3 GM/DL Albumin 2.9 GM/DL Valproic Acid (Depakene) Level 69 MCG/ML Assessment and Plan Problem List: (1) Aortic valve stenosis (2) Altered mental status (3) Idiopathic ischemic cerebrovascular accident (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
[2017-03-25] MEDS: DIVALPROEX SODIUM E.R. 500 MG TAB PO SCH (08:35)
[2017-03-25] MEDS: ASPIRIN EC 81 MG TABEC PO SCH (08:35)
[2017-03-25] MEDS: METOPROLOL TARTRATE 50 MG TAB PO SCH (08:35)
[2017-03-25] MEDS: LISINOPRIL 10 MG TAB PO SCH (08:35)
[2017-03-25] MEDS: FLUoxetine HCL 20 MG CAP PO SCH (08:36)
--- NOTE | 2017-03-25 09:15 | HHI.FPPN ---
Subjective Remarks Patient has been NPO since midnight. RN reports that MAGALY is tentatively scheduled for 12:00. Overall the patient is feeling well. No complaints. No CP, no headaches, no confusion, no SOB. (Ayo Tillman MD R2) Objective Vitals Vital Signs Date Time Temp Pulse Resp B/P Pulse Ox O2 Delivery O2 Flow Rate FiO2 03/25/17 06:00 64 03/25/17 04:24 18 03/25/17 04:00 71 03/25/17 04:00 98.4 71 20 158/72 99 03/25/17 02:00 64 03/25/17 00:00 98.2 61 19 138/60 98 03/25/17 00:00 61 03/24/17 22:00 65 03/24/17 21:58 18 03/24/17 21:02 100 21 03/24/17 20:00 73 03/24/17 20:00 98.6 73 23 121/59 97 03/24/17 18:00 90 03/24/17 16:00 91 03/24/17 16:00 97.8 91 25 132/84 97 03/24/17 14:00 67 03/24/17 12:00 70 03/24/17 12:00 97.9 70 28 157/77 100 03/24/17 10:38 100 21 03/24/17 10:00 80 I/O 03/24/17 03/24/17 03/24/17 03/25/17 03/25/17 03/25/17 07:00 15:00 23:00 07:00 15:00 23:00 Intake Total 458 ml 978 ml 440 ml 170 ml Output Total 850 ml 800 ml 250 ml 450 ml Balance -392 ml 178 ml 190 ml -280 ml Intake Oral 60 ml 480 ml 120 ml 0 ml IV Total 398 ml 498 ml 320 ml 170 ml Output Urine Total 850 ml 800 ml 250 ml 450 ml # Bowel Movements 0 1 0 0 (Ayo Tillman MD R2) Result Diagram: 03/24/17 1034 03/24/17 1034 Objective Remarks GENERAL: NAD, lying supine in bed NEURO: AOx3. Normal speech. cutlet maker pork grossly intact. Deputy [employer] strength 5/5. Lower extremity strength 5/5. Babinski downgoing. No pronator drift. SKIN: Warm and dry. No rashes or erythema. HEAD: Normocephalic. Atraumatic. EYES: EOMI. No scleral icterus. No injection or drainage. ENT: No nasal drainage. Moist mucous membranes. Small lacerations on lips and inside cheeks, no active bleeding. NECK: Supple, trachea midline. No JVD. CARDIOVASCULAR: RRR, harsh early systolic ejection murmur along right upper sternal border, early systolic murmur left upper sternal border. Peripheral pulses 2+. RESPIRATORY: Breath sounds clear to auscultation anteriorly, without wheezes, rales, or rhonchi. No accessory muscle use. GASTROINTESTINAL: Abdomen soft, nontender, nondistended, normal BS. MUSCULOSKELETAL: No edema, cyanosis, or clubbing. (Ayo Tillman MD R2) A/P Assessment and Plan 61 year old female with h/o severe anxiety and HTN brought to ED by paramedics for a stroke alert and found with a witnessed seizure in the ED. Neurology started the patient on Depakote 500 twice a day. Clear for discharge from neurology standpoint. Patient found to have severe aortic stenosis. Plan for MAGALY today. Discharge Planning MAGALY scheduled for Saturday03/25/2017 by cardiology. Discharge pending MAGALY and continued clinical improvement back to baseline. Likely back to [facility]. (Ayo Tillman MD R2) Attending Attestation Patient seen and examined. Case reviewed and discussed. Agree with plan of care as discussed with me and documented in the resident note. (Desiree Mathew MD) Problem List: (1) Altered mental status Status: Acute Plan: - May be caused by medication withdrawal effect leading to seizures vs lowered seizure threshold due to soma; other potential etiologies include stoke , tia, hypertensive encephalopathy, sepsis, dehydration, electrolytes abnormality - Neurology consulted - Continue Depakote 500 mg po BID per neurology recommendations - Daily depakote levels - Check cbc, ast, alt, depakote level 5 days after discharge - Ativan 2mg IV q10m prn seizures - Initial EEG per neurology without seizure activity - Pt will need to avoid activities such as driving, swimming or bathing - Seizure precautions - PT recommending PT at rehab - Continue xanax 1 mg po q8h - Daily baby aspirin - TSH 1.62 - ZOLTAN negative - RPR non-reactive - Neuro checks q4h - Head CT with no acute abnormality. Periventricular areas of diminished attenuation characteristic of some degree of small vessel ischemic demyelination - Head CTA mild atherosclerotic disease within the internal carotid arteries intracranially. No high-grade stenosis, vessel occlusion, or aneurysm - Neck CTA showing no acute vascular abnormality identified with the neck. Moderate right and mild left carotid bulb and proximal internal carotid artery atherosclerotic change but less than 50% stenosis present - Brain MRI with no acute intracranial abnormality. Chronic small vessel ischemic change. (2) Aortic valve stenosis Status: Acute Plan: TTE findings of mild to moderate stenosis, aortic valve area severely reduced, mild regurgitation Obtain MAGALY scheduled for Sunday 03/25 Cardiology consulted Clear for discharge pending cardiology recommendations. (3) Leukocytosis Status: Resolved Plan: Possibly a stress response secondary to seizure activity Continue to monitor (4) Anxiety Status: Chronic Plan: - Continue xanax po 1 mg po q8h (5) Hypokalemia Status: Acute Plan: Currently resolved. Getting normal saline 75 mL with potassium Continue to monitor daily (6) Hyponatremia Status: Acute Plan: Improving Hold NS at 75 cc/hr Continue to monitor (7) Anemia Status: Acute Plan: Stable Continue to monitor If downtrending, consider Hemoccult (8) Hypertension Status: Chronic Plan: Continue lisinopril 10 mg po daily Continue metoprolol 50 mg po bid Monitor vitals q4h (9) Depression Status: Chronic Plan: Continue home prozac 60 mg po daily Hold home bupropion due to lowered seizure threshold (10) Nutrition, metabolism, and development symptoms Status: Acute Plan: Fluids: NS at 75 cc/hr with potassium HOLD IVF. Remove leon catheter and monitor I&Os. Electrolytes: Continue to monitor and replace as necessary Nutrition: Regular diet DVT ppx: Continue Lovenox 40mg subq q24h Disposition: Likely d/c today 03/[address] Mathew and Dr. Mcclelland. (Ayo Tillman MD R2) Problem Qualifiers (1) Aortic valve stenosis: Qualified Code: I35.0 - Aortic valve stenosis, unspecified etiology Ayo Tillman MD R2 Mar 25, 2017 09:15 Desiree Mathew MD Mar 26, 2017 16:16
[2017-03-25 09:52] LABS: AUTOMATED NEUTROPHIL # 6.9 TH/MM3 (1.8-7.7); BASOPHIL # 0.1 TH/MM3 (0-0.2); EOSINOPHIL # 0.2 TH/MM3 (0-0.4); EOSINOPHIL % 1.6 % (0.0-4.0); HEMATOCRIT 33.7 % (35.0-46.0); HEMO FLAGS DIFF FINAL; LYMPH % 21.6 % (9.0-44.0); LYMPHOCYTE # 2.1 TH/MM3 (1.0-4.8); MEAN CORPUSCULAR HEMOGLOBIN 29.1 PG (27.0-34.0); MEAN CORPUSCULAR HGB CONC 32.7 % (32.0-36.0); MONO % 6.7 % (0.0-8.0); NEUT % 69.1 % (16.0-70.0); PLATELET COUNT 643 TH/MM3 (150-450); RED BLOOD COUNT 3.79 MIL/MM3 (4.00-5.30); RED CELL DISTRIBUTION WIDTH 15.3 % (11.6-17.2); WHITE BLOOD COUNT 9.9 TH/MM3 (4.0-11.0)
[2017-03-25 10:25] LABS: BICARBONATE 26.5 MEQ/L (21.0-32.0); POTASSIUM 4.2 MEQ/L (3.5-5.1)
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
[2017-03-25] MEDS ORDERED: PROPOFOL 200 MG/20 ML AMP IV ONE (12:28)
[2017-03-25] MEDS ORDERED: MISCELLANEOUS NURSING INFORMATION XX PRN (14:00)
--- NOTE | 2017-03-25 14:50 | HHI.DCPOC ---
Discharge Care Plan Diagnosis: (1) Anxiety (2) Aortic valve stenosis (3) Altered mental status, unspecified (4) Hypertension (5) Seizure (6) Hypokalemia (7) Hyponatremia Goals to Promote Your Health * To prevent worsening of your condition and complications * To maintain your health at the optimal level Directions to Meet Your Goals Take your medications as prescribed Follow your dietary instruction Follow activity as directed Keep your appointments as scheduled Take your immunizations and boosters as scheduled If your symptoms worsen call your PCP, if no PCP go to Urgent Care Center or Emergency Room Smoking is Dangerous to Your Health. Avoid second hand smoke Call the 24-hour hour crisis hotline for domestic abuse at Ayo Tillman MD R2 Mar 25, 2017 14:50
[2017-03-25] MEDS ORDERED: XANA1TAB2 PO (14:57)
[2017-03-25] MEDS ORDERED: POTA-163 PO (14:57)
[2017-03-25] MEDS ORDERED: cloNIDine HCL 0.1 MG TAB PO PRN (15:00)
[2017-03-25] MEDS ORDERED: NORC5TAB PO (16:33)
[2017-03-25] MEDS: ENOXAPARIN SODIUM 40 MG/0.4 ML SYRINGE SQ SCH (18:07)
--- NOTE | 2017-03-27 10:14 | HHI.DS ---
Discharge Summary Admission Date Mar 21, 2017 at 14:09 Admitting Diagnosis AMS, poss ischemic CVA (1) Altered mental status Plan: - May be caused by medication withdrawal effect leading to seizures vs lowered seizure threshold due to soma; other potential etiologies include stoke , tia, hypertensive encephalopathy, sepsis, dehydration, electrolytes abnormality - Neurology consulted - Continue Depakote 500 mg po BID per neurology recommendations - Daily depakote levels - Check cbc, ast, alt, depakote level 5 days after discharge - Ativan 2mg IV q10m prn seizures - Initial EEG per neurology without seizure activity - Pt will need to avoid activities such as driving, swimming or bathing - Seizure precautions - PT recommending PT at rehab - Continue xanax 1 mg po q8h - Daily baby aspirin - TSH 1.62 - ZOLTAN negative - RPR non-reactive - Neuro checks q4h - Head CT with no acute abnormality. Periventricular areas of diminished attenuation characteristic of some degree of small vessel ischemic demyelination - Head CTA mild atherosclerotic disease within the internal carotid arteries intracranially. No high-grade stenosis, vessel occlusion, or aneurysm - Neck CTA showing no acute vascular abnormality identified with the neck. Moderate right and mild left carotid bulb and proximal internal carotid artery atherosclerotic change but less than 50% stenosis present - Brain MRI with no acute intracranial abnormality. Chronic small vessel ischemic change. (2) Aortic valve stenosis Plan: TTE findings of mild to moderate stenosis, aortic valve area severely reduced, mild regurgitation Obtain MAGALY scheduled for Sunday 03/25 Cardiology consulted Clear for discharge pending cardiology recommendations. (3) Leukocytosis Plan: Possibly a stress response secondary to seizure activity Continue to monitor (4) Anxiety Plan: - Continue xanax po 1 mg po q8h (5) Hypokalemia Plan: Currently resolved. Getting normal saline 75 mL with potassium Continue to monitor daily (6) Hyponatremia Plan: Improving Hold NS at 75 cc/hr Continue to monitor (7) Anemia Plan: Stable Continue to monitor If downtrending, consider Hemoccult (8) Hypertension Plan: Continue lisinopril 10 mg po daily Continue metoprolol 50 mg po bid Monitor vitals q4h (9) Depression Plan: Continue home prozac 60 mg po daily Hold home bupropion due to lowered seizure threshold (10) Nutrition, metabolism, and development symptoms Plan: Fluids: NS at 75 cc/hr with potassium HOLD IVF. Remove leon catheter and monitor I&Os. Electrolytes: Continue to monitor and replace as necessary Nutrition: Regular diet DVT ppx: Continue Lovenox 40mg subq q24h Disposition: Likely d/c today 03/[address] Mathew and Dr. Mcclelland. Brief History Patient is a 61 year old female with h/o severe anxiety, HTN who was well functioning prior to one week ago and able to perform all IADLs she was brought by paramedics to the ED today from [facility] for a stroke alert. The patient is not able to provide reliable history. History was obtained from the patients daughter. The daughter states that the patient was recently discharged from [facility] yesterday and was transferred to [facility] last night. At [facility] yesterday evening the patient started having severe anxiety and the daughter states it took the facility a long time to give the patient her by mouth's pharynx. Daughter states it was about 1 AM before the patient finally received her Xanax. There is also report that the patient had been biting her tongue and cheeks for some time yesterday evening. The daughter is not aware of any previous history of seizures with the patient. No previous history of stroke per daughter. CBC/BMP: 03/25/17 0913 03/25/17 0913 Significant Findings Laboratory Tests Test 03/24/17 03/25/17 10:34 09:13 Red Blood Count 3.92 MIL/MM3 3.79 MIL/MM3 (4.00-5.30) (4.00-5.30) Hemoglobin 11.3 GM/DL 11.0 GM/DL (11.6-15.3) (11.6-15.3) Hematocrit 34.4 % 33.7 % (35.0-46.0) (35.0-46.0) Platelet Count 713 TH/MM3 643 TH/MM3 (150-450) (150-450) Sodium Level 132 MEQ/L 130 MEQ/L (136-145) (136-145) Potassium Level 3.3 MEQ/L (3.5-5.1) Chloride Level 94 MEQ/L 95 MEQ/L (98-107) (98-107) Estimat Glomerular Filtration 74 ML/MIN (>89) 84 ML/MIN (>89) Rate Albumin 2.9 GM/DL (3.4-5.0) PE at Discharge GENERAL: NAD, lying supine in bed NEURO: AOx3. Normal speech. temporary staff accountant grossly intact. Performance Engineer strength 5/5. Lower extremity strength 5/5. Babinski downgoing. No pronator drift. SKIN: Warm and dry. No rashes or erythema. HEAD: Normocephalic. Atraumatic. EYES: EOMI. No scleral icterus. No injection or drainage. ENT: No nasal drainage. Moist mucous membranes. Small lacerations on lips and inside cheeks, no active bleeding. NECK: Supple, trachea midline. No JVD. CARDIOVASCULAR: RRR, harsh early systolic ejection murmur along right upper sternal border, early systolic murmur left upper sternal border. Peripheral pulses 2+. RESPIRATORY: Breath sounds clear to auscultation anteriorly, without wheezes, rales, or rhonchi. No accessory muscle use. GASTROINTESTINAL: Abdomen soft, nontender, nondistended, normal BS. MUSCULOSKELETAL: No edema, cyanosis, or clubbing. Hospital Course 61 year old female with h/o severe anxiety, HTN, and R hip fracture s/p ORIF the week before admission she was well functioning prior to her hip fracture able to perform all IADLs she was brought by paramedics to the ED from [facility] for a stroke alert. Stroke w/u was negative. She had a witnessed seizure in the ED. from report by the patient's daughter, the patient was having severe anxiety tonight before admission, and was not given her by mouth Xanax until 1 AM. It was thought the patient may have had seizure activity due to a medication withdrawal effect. She was started on Depacon IV now transitioned to Depakote 500 mg po bid. She has not had a seizure per nursing since her seizure in the ED on 03/21. Her initial EEG had absence of electrographic seizures or epileptiform discharges however this does not exclude a diagnosis of epilepsy. EEG did show excess beta activity which is a nonspecific finding however may be related to medication adverse effects such as benzodiazepines. She was found to have mild to moderate aortic stenosis on transthoracic echocardiography. Patient is thus scheduled to undergo a MAGALY on Sunday 03/25 by cardiology. Pending results of MAGALY, patient is otherwise stable for discharge back to [facility]. Patient should be instructed on seizure precautions prior to discharge. Patient will need Depakote level, CBC, AST, ALP to be checked 5 days after discharge. She will need follow-up with neurology, Dr. Nichols, in 2 weeks. Pt Condition on Discharge: Stable Discharge Disposition: Discharge to SNF Discharge Instructions DIET: Follow Instructions for: Heart Healthy Diet Activities you can perform: Partial Weight Bearing Other Activity Instructions: Right hip ORIF, within last 1 month. Physical therapy and weight bearing as previously suggested by ortho. Ayo Tillman MD R2 Mar 27, 2017 10:14
--- NOTE | 2017-04-01 15:09 | ETE ---
Study Study Date:03/25/2017 STUDY CONCLUSIONS SUMMARY - Left ventricle: The cavity size was normal. Wall thickness was normal. Systolic function was normal. The estimated ejection fraction was in the range of 60% to 65%. Wall motion was normal; there were no regional wall motion abnormalities. - Aortic valve: No evidence of vegetation. Mild to moderate regurgitation. - Mitral valve: No evidence of vegetation. - Left atrium: No evidence of thrombus in the atrial cavity or appendage. - Right atrium: No evidence of thrombus in the atrial cavity or appendage. - Tricuspid valve: No evidence of vegetation. - Pulmonic valve: No evidence of vegetation. If LV function is below 40, please consider prescribing an ACEI or ARB or document rationale for non-use. PROCEDURE DATA Consent: The risks, benefits, and alternatives to the procedure were explained to the patient and informed consent was obtained. Procedure: Initial setup. The patient was brought to the laboratory in the fasting state. Intravenous access was obtained. Surface ECG leads and pulse oximetric signals were monitored. Sedation. Deep sedation was administered by anesthesiology. Transesophageal echocardiography. Topical anesthesia was obtained using viscous lidocaine. A transesophageal probe was inserted by the attending senior chemist. Image quality was good. Study completion: All IVs inserted during the procedure were removed. The patient tolerated the procedure well. There were no complications. Transesophageal echocardiography. 2D, complete spectral Doppler, and color Doppler. CARDIAC ANATOMY LEFT VENTRICLE: The cavity size was normal. Wall thickness was normal. Systolic function was normal. The estimated ejection fraction was in the range of 60% to 65%. Wall motion was normal; there were no regional wall motion abnormalities. AORTIC VALVE: Trileaflet; mildly thickened leaflets. Cusp separation was normal. No evidence of vegetation. Doppler: There was no stenosis. Mild to moderate regurgitation. Aorta: - There was mild atheromatous plaque. There was no evidence for dissection. Aortic root: The aortic root was not dilated. Ascending aorta: The ascending aorta was normal in size. Aortic arch: The aortic arch was normal in size. Descending aorta: The descending aorta was normal in size. MITRAL VALVE: Structurally normal valve. Leaflet separation was normal. No evidence of vegetation. Doppler: No significant regurgitation. LEFT ATRIUM: The atrium was normal in size. No evidence of thrombus in the atrial cavity or appendage. The appendage was morphologically a left appendage, multilobulated, and of normal size. Emptying velocity was normal. RIGHT VENTRICLE: The cavity size was normal. Wall thickness was normal. Systolic function was normal. PULMONIC VALVE: Structurally normal valve. No evidence of vegetation. TRICUSPID VALVE: Structurally normal valve. Leaflet separation was normal. No evidence of vegetation. Doppler: Trace regurgitation. PULMONARY ARTERY: The main pulmonary artery was normal-sized. Systolic pressure could not be accurately estimated. RIGHT ATRIUM: The atrium was normal in size. No evidence of thrombus in the atrial cavity or appendage. The appendage was morphologically a right appendage. PERICARDIUM: There was no pericardial effusion. Prepared and signed by Joshua Jones [id number]
== END 2017-03-25 18:40 | DRG 101 ==
LOC: NEPE 11:21 → NEDA 14:09 → HIME 17:55 → N05A 03-25 11:26
PROVIDERS: ADMIT Family Medicine; ATTEND Family Medicine
PROC: B24BZZ4 Ultrasonography of Heart with Aorta, Transesophageal (ICD-10-PCS; principal; 2017-03-25)
DX: R56.9 Unspecified convulsions (principal); E87.1 Hypo-osmolality and hyponatremia; I10 Essential (primary) hypertension; I35.0 Nonrheumatic aortic (valve) stenosis; F41.1 Generalized anxiety disorder; E78.00 Pure hypercholesterolemia, unspecified; F17.200 Nicotine dependence, unspecified, uncomplicated; E87.6 Hypokalemia; D64.9 Anemia, unspecified; S72.001D Fracture of unspecified part of neck of right femur, subsequent encounter for closed fracture with routine healing
CPT/HCPCS: 51702; 70450; 70496; 70498; 70553; 74000; 80048; 80053; 80061; 80076; 80164; 80307; 81001; 82140; 82435; 82533; 82550; 82552; 82565; 82607; 82947; 82948; 83605; 83735; 84100; 84132; 84295; 84425; 84439; 84443; 84520; 85025; 85384; 85610; 85652; 85730; 86038; 86592; 86850; 86900; 86901; 87081; 87641; 93005; 93306; 93312; 93320; 93325; 95819; A9579; J1650; J2060; J3480; J7030; Q9967